=== PATIENT | female | born 2000 | race Two or more races ===

== ENCOUNTER 2023-12-18 14:13 | Emergency (ER) | payer OTHER ==
[~2023-12-18] VITALS: Ht 162.6 cm; Wt 65.8 kg
== END 2023-12-18 17:07 | disposition left against medical advice (07) ==
LOC: ER 14:14
DX: Z53.21 Procedure and treatment not carried out due to patient leaving prior to being seen by health care provider (principal)

== ENCOUNTER 2023-12-21 13:00 | Emergency (ER) | payer OTHER ==
[~2023-12-21] VITALS: Ht 160 cm; Wt 61.2 kg
[2023-12-21 16:26] LABS: HEMATOCRIT 39.1 % (36.0-45.00); HEMOGLOBIN 13.6 g/dL (12.0-15.00); MEAN CELL VOLUME 82.1 fL (80.00-100.00); MEAN CORPUSCULAR HEMOGLOBIN 28.6 pg (27.00-32.0); MEAN CORPUSCULAR HGB CONC 34.9 g/dl (32.0-36.0); PLATELET COUNT 278 K/uL (150-450); RED BLOOD COUNT 4.76 M/uL (4.00-6.00); RED CELL DISTRIBUTION WIDTH 12.9 % (11.5-14.5)
[2023-12-21] MEDS ORDERED: KETOROLAC TROMETHAMINE 30 MG VIAL IM STA (17:48)
[2023-12-21] MEDS ORDERED: IBU600 MG PO (17:50)
== END 2023-12-21 18:29 | disposition home or self-care (01) ==
LOC: ER 13:00
PROVIDERS: General Practice
DX: J06.9 Acute upper respiratory infection, unspecified (principal); Z20.822 Contact with and (suspected) exposure to COVID-19